=== PATIENT | male | born 1935 | race Caucasian/White ===

== ENCOUNTER 2017-09-29 11:26 | Outpatient (CLI) | payer MEDICARE ==
--- NOTE | 2017-09-29 11:56 | RAD ---
LUMBAR SPINE FIVE VIEWS: History: Low back pain. FINDINGS: There are five lumbar type vertebra. Pedicles are intact. Rightward convex rotatory scoliotic curvatu re is apparent. Vertebral body heights are maintained. Minimal degenerative retrolisthesis at the L1- 2 level and L4-5 level do not change upon flexion or extension, although there is very little motion. Disc space narrowing and gas disc phenomenon are present at the lowest two levels. There is prominen t osteophytosis throughout the vertebral bodies and facets. Calcification overlies the arterial struc tures. IMPRESSION: 1. Prominent lumbar spondylosis. No acute osseous abnormalities are demonstrated. 2. Atherosclerosis. POS: [facility]
== END 2017-09-29 11:27 | disposition home or self-care (01) ==
LOC: MADRAD 11:26
PROVIDERS: ATTEND Neurological Surgery
DX: M47.26 Other spondylosis with radiculopathy, lumbar region (principal); I70.90 Unspecified atherosclerosis
CPT/HCPCS: 72120

== ENCOUNTER 2018-05-11 14:56 | Emergency (ER) | payer MEDICARE | END 2018-05-11 15:31 | disposition home or self-care (01) | LOC: MADERS 14:56 | DX: I10 Essential (primary) hypertension (principal); L02.413 Cutaneous abscess of right upper limb; E78.00 Pure hypercholesterolemia, unspecified; M19.90 Unspecified osteoarthritis, unspecified site; E03.9 Hypothyroidism, unspecified | CPT/HCPCS: 87070; 87186; 87205; 99283 ==

== ENCOUNTER 2022-08-22 16:21 | Outpatient (CLI) | payer MEDICARE | END 2022-08-22 16:22 | disposition home or self-care (01) | LOC: MADLAB 16:21 | PROVIDERS: ATTEND Internal Medicine | DX: M25.561 Pain in right knee (principal); M17.11 Unilateral primary osteoarthritis, right knee ==

== ENCOUNTER 2024-04-15 09:30 | Emergency (ER) | payer MEDICARE ==
[2024-04-15] MEDS ORDERED: Magnesium 2 GM/50 ML BAG (IN WATER) ONE (10:33)
[2024-04-15] MEDS ORDERED: methylPREDNISolone Sod Succ/PF 125 MG/2 ML VIAL ONE (10:33)
[2024-04-15] MEDS ORDERED: Acetaminophen 325 MG TAB ONE (10:33)
[2024-04-15] MEDS ORDERED: Dexamethasone 10 MG/ML VIAL ONE (10:36)
[2024-04-15 10:42] LABS: #Basophils 0.1 thou/uL (0.0-0.2); #Eosinophils 0.7 thou/uL (0.0-0.7); #Lymphocytes 1.5 thou/uL (1.20-3.40); #Monocytes 0.6 thou/uL (0.11-0.59); #Neutrophils 3.4 thou/uL (1.40-6.50); %Basophils 1.8 % (0.0-1.0); %Lymphocytes 24.5 % (21.0-51.0); %Monocytes 8.8 % (0.0-10.0); %Neutrophils 53.9 % (42.0-75.0); Hematocrit 38.6 % (42.0-52.0); Hemoglobin 12.4 g/dL (14.0-18.0); Mean Corpuscular HGB CONC 32.1 g/dL (32.0-36.0); Mean Corpuscular Hemoglobin 29.3 pg (27.0-31.0); Mean Corpuscular Volume 91.3 fl (78.0-98.0); Mean Platelet Volume 10.1 fL (7.4-10.4); Platelet Count 160 10x3/uL (130-400); Red Blood Cell (RBC) Count 4.23 mill/uL (4.70-6.10); White Blood Cell (WBC) Count 6.2 10x3/uL (4.8-10.8)
[2024-04-15 11:24] LABS: Prothrombin Time 13.2 sec (12.0-14.7)
[2024-04-15 11:25] LABS: PTT 25.6 sec (22.9-36.1)
[2024-04-15 12:18] LABS: ALT (SGPT) 15 U/L (8-55); AST (SGOT) 19 U/L (5-34); Albumin 3.7 g/dL (3.4-4.8); Alkaline Phosphatase 88 U/L (40-110); Anion Gap 15 mmol/L (10-20); BUN (Urea Nitrogen) 26 mg/dL (8.4-25.7); Bilirubin, Total 0.6 mg/dL (0.2-1.2); Calc. Creatinine Clearance 0 mL/min (70-130); Calcium 9.5 mg/dL (7.8-10.44); Carbon Dioxide 22 mmol/L (23-31); Estimated GFR 36; Globulin 3.6 g/dL (2.4-3.5); Glucose 101 mg/dL (83-110); Magnesium 2.2 mg/dL (1.6-2.6); Protein, Total 7.3 g/dL (5.8-8.1)
[2024-04-15 12:26] LABS: Chloride 108 mmol/L (98-107); Potassium 4.5 mmol/L (3.5-5.1); Sodium 140 mmol/L (136-145)
[2024-04-15] MEDS ORDERED: cefTRIAXone (ROCEPHIN) 2 GM VIAL ONE (16:17)
[2024-04-15] MEDS ORDERED: Sodium Chloride 0.9% 100 ML ONE (16:17)
[2024-04-15] MEDS ORDERED: Ampicillin 2 GM VIAL ONE (16:18)
[2024-04-15] MEDS ORDERED: Sodium Chloride 0.9% 250 ML 250 ML ONE (17:38)
[2024-04-15] MEDS ORDERED: Vancomycin 1 GM VIAL ONE (17:38)
== END 2024-04-15 18:20 | disposition short-term general hospital (02) ==
LOC: MADERS 09:30
DX: R51.9 Headache, unspecified (principal); I12.9 Hypertensive chronic kidney disease with stage 1 through stage 4 chronic kidney disease, or unspecified chronic kidney disease; N18.9 Chronic kidney disease, unspecified; E03.9 Hypothyroidism, unspecified; E78.00 Pure hypercholesterolemia, unspecified; Z79.82 Long term (current) use of aspirin; Z79.899 Other long term (current) drug therapy
CPT/HCPCS: 36415; 70450; 71045; 80053; 83605; 83735; 84443; 85025; 85610; 85730; 87040; 87400; 87428; 93005; 94760; 96365; 96367; 96375; J0290; J0696; J1100; J2919; J3370; J3475; J7050